=== PATIENT | male | born 1960 | race Caucasian/White ===

== ENCOUNTER 2018-09-06 09:44 | Observation (INO) ==
--- NOTE | 2018-09-06 09:55 | EKG Report ---
Test Performed on : 09/06/2018 09:26:38 AM Test Reason : ABN STRESS TEST Blood Pressure : / mmHG Vent. Rate : 083 BPM Atrial Rate : 083 BPM P-R Int : 166 ms QRS Dur : 100 ms QT Int : 390 ms P-R-T Axes : 057 051 019 degrees QTc Int : 458 ms Normal sinus rhythm. Inferior infarct , age undetermined Anterior infarct , age undetermined Abnormal ECG No previous ECGs available Confirmed by Marck CHAMBERS, Wayne Merchant ([id number]) on 09/06/2018 1:02:08 PM
[2018-09-06] MEDS ORDERED: LOPRESSOR PO SCH (10:00)
[2018-09-06] MEDS ORDERED: LIPITOR PO SCH (10:00)
[2018-09-06] MEDS ORDERED: HEPARIN IV ONE (10:15)
[2018-09-06] MEDS ORDERED: HEPARIN ONE (10:17)
--- NOTE | 2018-09-06 10:17 | HISTORY AND PHYSICAL ---
DATE OF ADMISSION: 09/06/2018 PRIMARY CARE PHYSICIAN: Feroz Diaz MD HISTORY: This 58-year-old white male with past history of hypertension and chronic cigarette use came to the hospital today for exercise myocardial perfusion study. He exercised for over 8 minutes without chest discomfort. However, he developed inferior ST elevation with reciprocal changes and was immediately removed from the treadmill and given sublingual nitroglycerin and aspirin. His chest discomfort resolved by the time I arrived. He was given sublingual nitroglycerin and aspirin. He had been feeling fatigued and very tired and short of breath. His symptoms resolved and inferior ST-elevation returned to baseline. Further history was obtained. He had recent onset of vague low substernal to epigastric discomfort with bilateral arm radiation in the last 4 or 5 days. Two nights ago, he had a waxing and waning episode that lasted maybe 30 minutes to an hour and then resolved. Interestingly, he did not have such discomfort while he was on the treadmill. He is presently without chest discomfort or shortness of breath. Arrangements are underway to have him observed in the emergency room pending transfer to [facility] for cardiac catheterization. PAST MEDICAL HISTORY: Hypertension. PAST SURGICAL HISTORY: Includes previous cervical spine surgery. ALLERGIES: No known drug allergies. MEDICATIONS: As listed. SOCIAL HISTORY: He is . 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 He has smoked approximately 1 pack cigarettes per day for approximately 30 years. He does not use alcohol. FAMILY HISTORY: Positive for coronary disease. REVIEW OF SYSTEMS: Pulmonary: Noncontributory beyond history of present illness. Gastrointestinal: Noncontributory beyond history of present illness. Constitutional: Noncontributory beyond history of present illness. Remainder of review of systems noncontributory beyond history of present illness with 14 total systems reviewed. PHYSICAL EXAMINATION: General: This is a middle-aged male in no distress. Vital signs: Blood pressure 142/86, heart rate 90 and regular. HEENT: Extraocular movements intact. Mucous membranes are moist. Neck: Supple without jugular venous distention. There are no carotid bruits. Chest: Clear to auscultation bilaterally. Cardiac Exam: Regular rate and rhythm without appreciable murmur or gallop. Abdomen: Soft, nontender. Bowel sounds normal. Extremities: Without edema. Neurologic: Reveals him to be alert and fully oriented. Speech is fluent. He moves all 4 extremities equally well. DIAGNOSTIC STUDIES: Baseline ECG demonstrates sinus rhythm and very small inferior Q-waves. Exercise ECG observed and demonstrates development of significant inferior ST elevation with reciprocal changes with exercise and returned to baseline in recovery. IMPRESSION: 1. Unstable angina. 2. Hypertension. 3. Chronic cigarette use. 4. Positive family history of coronary disease. RECOMMENDATIONS: 1. Aspirin already given. 2. Initiate intravenous heparin. 3. Initiate metoprolol. 4. Arrange transfer to [facility] for cardiac catheterization/coronary angiography and possible coronary intervention today. 5. Echocardiography. cc: Michael Omalley MD
[2018-09-06] MEDS ORDERED: HEPARIN 25,000 UNITS/D5W 25,000 UNIT/250 ML IV.SOLN IV SCH (10:30)
[2018-09-06] MEDS ORDERED: NITROGLYCERIN SL PRN (11:51)
[2018-09-06 12:05] LABS: HEMATOCRIT 50.1 % (42.0-52.0); HEMOGLOBIN 16.2 g/dL (14.0-18.0); MCH 27.6 PG (27-31); MCHC 32.3 g/dL (33-37); MCV 85.3 FL (81-99); RBC 5.87 XMIL (4.7-6.1); RDW 13.8 % (11.5-14.5); WBC 11.11 X1000 (4.8-10.8)
--- NOTE | 2018-09-06 12:11 | EKG Report ---
Test Performed on : 09/06/2018 09:43:19 AM Test Reason : CP Blood Pressure : / mmHG Vent. Rate : 085 BPM Atrial Rate : 085 BPM P-R Int : 170 ms QRS Dur : 096 ms QT Int : 388 ms P-R-T Axes : 032 003 -22 degrees QTc Int : 461 ms Normal sinus rhythm. Inferior infarct (cited on or before 06-SEP-2018) Anterior infarct (cited on or before 06-SEP-2018) Abnormal ECG When compared with ECG of 06-SEP-2018 09:26, (Unconfirmed) No significant change was found Confirmed by Marck CHAMBERS, Wayne Merchant ([id number]) on 09/06/2018 1:03:13 PM
[2018-09-06 12:14] LABS: INR 0.91
[2018-09-06 12:28] LABS: CALCIUM 9.1 mg/dL (8.8-10.2); CREATININE 1.5 mg/dL (0.7-1.2); MAGNESIUM 1.7 mg/dL (1.5-2.7)
[2018-09-06] MEDS ORDERED: NS 1,000 ML IV SCH (13:15)
--- NOTE | 2018-09-06 14:13 | EKG Report ---
Test Performed on : 09/06/2018 2:09:36 PM Test Reason : chest pain, stemi Blood Pressure : / mmHG Vent. Rate : 059 BPM Atrial Rate : 059 BPM P-R Int : 184 ms QRS Dur : 096 ms QT Int : 436 ms P-R-T Axes : 042 017 011 degrees QTc Int : 431 ms Sinus bradycardia. with sinus arrhythmia. Inferior infarct (cited on or before 06-SEP-2018)(possible recent) Possible Anterior infarct (cited on or before 06-SEP-2018) Abnormal ECG When compared with ECG of 06-SEP-2018 09:43, Nonspecific T wave abnormality has replaced inverted T waves in Inferior leads Confirmed by Marck CHAMBERS, Wayne Merchant ([id number]) on 09/06/2018 4:12:16 PM
--- NOTE | 2018-09-06 16:21 | Diag Imaging Result Document ---
PROCEDURE NAME: MYOCARDIAL PERFU SCAN, STRESS - 09/06/2018 STUDY: Treadmill exercise treadmill myocardial perfusion study. This is a stress only study. INDICATION: Chest pain. Abnormal EKG. DESCRIPTION: The patient came into the stress lab and exercised on a treadmill under our supervision. At peak exercise was injected with technetium 99 sestamibi 36.2 mCi. Multiple tomographic views of the cardiac structures were obtained following the completion of the exercise protocol. SUMMARY OF ELECTROCARDIOGRAPHIC PORTION OF STUDY: Resting ECG shows sinus rhythm, rate 79 beats per minute. Resting blood pressure is 154/92. Resting ECG shows nonspecific T wave in the inferior leads with rightward axis, possible Q wave in inferior leads. The patient walked on the treadmill for a total time of 8 minutes and 42 seconds. He completed two stages of Tariq protocol and walked for 2 minutes and 42 seconds into the third stage, achieving a maximum heart rate of 144 beats per minute, representing 88% of maximum predicted heart rate for his age. Peak blood pressure was 178/93. Maximum workload is 10.10 METS. Peak exercise ECG shows sinus tachycardia with no significant ST-T abnormalities. The test was terminated due to achievement of heart rate and fatigue, however immediately early into the recovery phase there was evidence of ST segment elevation in the inferior leads 2, 3, and F with ST segment depression in leads 1 and AVL. There was also ST elevation in leads V1 through V4. This is suspicious for severe transmural inferior wall ischemia and very likely right ventricular wall ischemia. At that time, the patient reported chest pain, shortness of breath, and diaphoresis. He was given aspirin and nitroglycerin sublingual, two sprays. He sat down and rested. By three and a half minutes into the recovery phase, the ST segment elevation returned back to baseline. The patient started to feel better. At four and a half minutes into the recovery phase, the ECG definitely looked nearly back to baseline and the patient was observed for at least 20 minutes into the recovery phase. The ECG had normalized. At that point, the decision was made to admit the patient to the hospital for invasive evaluation. Of note, there was no significant drop in systolic blood pressure throughout the entire incident. In summary, the electrocardiographic response to exercise is markedly abnormal and it indicates transmural inferior wall ischemia with suspected right ventricular free wall ischemia also. That would typically point to a severe coronary lesion proximal to the major Acute Marginal branch of the right coronary artery. SUMMARY OF THE MYOCARDIAL PERFUSION PORTION OF THE STUDY: Poststress tomographic views of the left ventricle showed a severe, extensive inferior wall defect. The defect spans the entirety of the inferior wall. The polar plots shows the same. There is an extensive, severe inferior wall defect consistent with either a scar or ischemia of the entire inferior wall. Gated SPECT shows preserved global ejection fraction of 65%. There is inferior hypokinesis. End systolic volume 46 mL. Lung/heart ratio is normal. IMPRESSION: In summary, this study shows: 1. Abnormal left ventricular electrocardiographic response to exercise. The patient developed electrocardiographic evidence of transmural myocardial ischemia involving the inferior wall and probably the right ventricular wall. This lasted for about three minutes into the recovery phase and then resolved after nitroglycerin and aspirin. 2. Abnormal poststress myocardial perfusion scan. There is evidence of an extensive transmural inferior wall defect. More than likely this represents ischemia when correlating with the electrocardiogram findings. Unfortunately, rest images will not be performed in this case. 3. Preserved global ejection fraction at 65% with inferior septal hypokinesis. At the time of this dictation the patient is on his way to [facility] for invasive cardiac evaluation. CIERRAe has already been started on IV heparin and he is hemodynamically stable. He is likely to have a proximal RCA stenosis. cc: MD Feroz Lazar MD MTDD
[2018-09-06] MEDS ORDERED: NITROGLYCERIN TOP SCH (16:45)
[2018-09-06 19:57] VITALS: BP 137/55
--- NOTE | 2018-09-07 08:14 | ECHO REPORT ---
ORDER DATE: 09/06/2018 CLINICAL INDICATIONS: Dyspnea and chest discomfort, a 58-year-old male. REQUESTING PHYSICIAN: DR. Diaz. M-MODE MEASUREMENTS: Left ventricle end diastole: 5.3 cm. Left ventricle end systole: 3.6 cm. Posterior wall: 1.1 cm. Interventricular septum: 1.1 cm. Left atrium: 4.5 cm. Aortic root: 3.3 cm. SUMMARY OF 2-DIMENSIONAL IMAGIN. The left ventricular systolic function appears to be grossly normal. Ejection fraction is estimated at 58%. No definite wall motion abnormality is noted, although in some views the inferior septal segment appears to be slightly hypokinetic. 2. The right ventricle appears to be grossly normal. 3. The aortic valve looks normal. 4. The pulmonic valve is normal. Color flow mapping unremarkable. 5. The tricuspid valve is normal. Color flow mapping unremarkable. 6. Mitral valve opens normally. Color flow mapping indicates a mild degree of regurgitation. 7. Pulse wave Doppler of mitral inflow shows mild reversal of the E/A ratio. 8. Tissue Doppler of septal and lateral mitral annulus averages 8 cm. 9. Pulmonary venous flow is normal. 10. There is no diastolic dysfunction. CONCLUSION: In summary, this study shows 1. Normal left ventricular systolic function with question of hypokinesis of the inferior wall in the septal aspect of it. 2. Mild degree of mitral regurgitation. 3. No pulmonary hypertension. 4. No diastolic dysfunction. 5. No pericardial effusion, mass, and no thrombus. Clinical correlation is recommended. cc: MD Christy Lazar PA William D. Denney, MD
[2018-09-07] MEDS ORDERED: ASPIRIN PO SCH (09:00)
== END 2018-09-06 19:56 | disposition short-term general hospital (02) ==
LOC: ED 16:53 → EDIPHOLD 16:54 → INTOOBSV 16:54 → EDIPHOLD 19:57
PROVIDERS: ADMIT Internal Medicine Cardiovascular Disease; ATTEND Internal Medicine Cardiovascular Disease
CPT/HCPCS: 78451; 80048; 82550; 83735; 84484; 85027; 85610; 85730; 93005; 93010; 93017; 93306; 96365; 96366; 96375; 99285; A9270; A9500; J1644; J7030